=== PATIENT | male | born 1965 | race Caucasian/White ===

== ENCOUNTER 2017-07-29 17:51 | Emergency (ER) | payer OTHER ==
[~2017-07-29] VITALS: Ht 198.1 cm; Wt 111.6 kg
[2017-07-29 17:55] VITALS: Ht 198.1 cm; Wt 111.6 kg
[2017-07-29 19:39] VITALS: BP 149/99
== END 2017-07-29 19:39 | disposition home or self-care (01) ==
LOC: ED 17:51
DX: J20.9 Acute bronchitis, unspecified (principal); I10 Essential (primary) hypertension; K74.60 Unspecified cirrhosis of liver; Z88.2 Allergy status to sulfonamides
CPT/HCPCS: J7512; J7613; J7644

== ENCOUNTER 2018-05-31 13:38 | Emergency (ER) | payer OTHER ==
[~2018-05-31] VITALS: Ht 198.1 cm; Wt 104.3 kg
[2018-05-31 13:52] VITALS: Ht 198.1 cm; Wt 104.3 kg
[2018-05-31 15:01] LABS: BASOPHIL % 1.3 % (0-2)
[2018-05-31 15:03] LABS: PLATELET COUNT 105 x10^3mcL (130-400); RED CELL DISTRIBUTION WIDTH 16.5 % (11.5-14.5)
[2018-05-31 15:18] LABS: CALCIUM 8.4 mg/dL (8.5-10.1); CARBON DIOXIDE 26.3 mmol/L (21-32); CHLORIDE SERUM 103 mmol/L (98-107); CREATININE SERUM 0.9 mg/dL (0.7-1.3); GFR1 > 60 mL/min; GLUCOSE SERUM 96 mg/dL (74-106); POTASSIUM SERUM 4.4 mmol/L (3.5-5.1); SODIUM SERUM 136 mmol/L (136-145)
[2018-05-31 15:22] LABS: ALKALINE PHOSPHATASE 93 U/L (46-116); ALT/SGPT 146 U/L (16-63); AST/SGOT 124 U/L (15-37); BILIRUBIN TOTAL 1.3 mg/dL (0.20-1.00); LIPASE 171 IU/L (73-393); TOTAL PROTEIN, SERUM 7.2 g/dL (6.4-8.2)
[2018-05-31 15:29] LABS: ALBUMIN 3.1 g/dL (3.4-5.0)
[2018-05-31 20:20] VITALS: BP 146/82
== END 2018-05-31 20:20 | disposition home or self-care (01) ==
LOC: ED 13:38
PROVIDERS: Specialist
DX: K21.9 Gastro-esophageal reflux disease without esophagitis (principal); K74.60 Unspecified cirrhosis of liver; I10 Essential (primary) hypertension; Z88.2 Allergy status to sulfonamides; Z98.890 Other specified postprocedural states; Z90.89 Acquired absence of other organs; Z87.442 Personal history of urinary calculi
CPT/HCPCS: J2270; J2405; J3490; J7030; Q0092; Q9967

== ENCOUNTER 2018-06-08 16:53 | Emergency (ER) | payer OTHER ==
[~2018-06-08] VITALS: Ht 198.1 cm; Wt 99.8 kg
[2018-06-08 16:57] VITALS: Ht 198.1 cm; Wt 99.8 kg
[2018-06-08 17:42] LABS: BASOPHIL % 0.4 % (0-2)
[2018-06-08 17:44] LABS: CALCIUM 7.9 mg/dL (8.5-10.1); CARBON DIOXIDE 31.8 mmol/L (21-32); CHLORIDE SERUM 105 mmol/L (98-107); CREATININE SERUM 0.9 mg/dL (0.7-1.3); GFR1 > 60 mL/min; GLUCOSE SERUM 106 mg/dL (74-106); SODIUM SERUM 142 mmol/L (136-145)
[2018-06-08 17:48] LABS: ALKALINE PHOSPHATASE 87 U/L (46-116); ALT/SGPT 91 U/L (16-63); AMYLASE 70 U/L (25-115); AST/SGOT 67 U/L (15-37); BILIRUBIN TOTAL 1.2 mg/dL (0.20-1.00); LIPASE 366 IU/L (73-393); PLATELET COUNT 102 x10^3mcL (130-400); RED CELL DISTRIBUTION WIDTH 16.6 % (11.5-14.5); TOTAL PROTEIN, SERUM 6.3 g/dL (6.4-8.2)
[2018-06-08 17:50] LABS: ALBUMIN 2.8 g/dL (3.4-5.0)
[2018-06-08 20:03] VITALS: BP 134/88
== END 2018-06-08 20:03 | disposition home or self-care (01) ==
LOC: ED 16:53
PROVIDERS: Specialist
DX: R10.13 Epigastric pain (principal); I10 Essential (primary) hypertension; Z88.2 Allergy status to sulfonamides; Z90.89 Acquired absence of other organs; Z87.19 Personal history of other diseases of the digestive system
CPT/HCPCS: J2405; J3490

== ENCOUNTER 2018-06-21 13:14 | Emergency (ER) | payer OTHER ==
[~2018-06-21] VITALS: Ht 198.1 cm; Wt 105.2 kg
[2018-06-21 13:49] VITALS: Ht 198.1 cm; Wt 105.2 kg
[2018-06-21 17:23] VITALS: BP 149/82
== END 2018-06-21 17:38 | disposition home or self-care (01) ==
LOC: ED 13:14
DX: S09.8XXA Other specified injuries of head, initial encounter (principal); I10 Essential (primary) hypertension; Z88.2 Allergy status to sulfonamides; Z86.73 Personal history of transient ischemic attack (TIA), and cerebral infarction without residual deficits; X58.XXXA Exposure to other specified factors, initial encounter; Y93.89 Activity, other specified; Y92.89 Other specified places as the place of occurrence of the external cause; Y99.8 Other external cause status
CPT/HCPCS: J1885

== ENCOUNTER 2018-10-05 10:36 | Emergency (ER) | payer OTHER ==
[~2018-10-05] VITALS: Ht 195.6 cm; Wt 108.0 kg
[2018-10-05 10:54] VITALS: Ht 195.6 cm; Wt 108.0 kg
[2018-10-05 12:39] VITALS: BP 149/86
== END 2018-10-05 12:39 | disposition home or self-care (01) ==
LOC: ED 10:36
DX: S06.890A Other specified intracranial injury without loss of consciousness, initial encounter (principal); G44.209 Tension-type headache, unspecified, not intractable; I10 Essential (primary) hypertension; Z88.2 Allergy status to sulfonamides; Z98.890 Other specified postprocedural states; X58.XXXA Exposure to other specified factors, initial encounter; Y93.89 Activity, other specified; Y92.89 Other specified places as the place of occurrence of the external cause; Y99.8 Other external cause status
CPT/HCPCS: J0780; J1885

== ENCOUNTER 2018-11-22 20:52 | Emergency (ER) | payer OTHER ==
[~2018-11-22] VITALS: Ht 182.9 cm; Wt 104.3 kg
[2018-11-22 20:56] VITALS: Ht 182.9 cm; Wt 104.3 kg
[2018-11-23 00:42] VITALS: BP 138/83
== END 2018-11-23 00:42 | disposition home or self-care (01) ==
LOC: ED 20:52
DX: G43.009 Migraine without aura, not intractable, without status migrainosus (principal); I10 Essential (primary) hypertension; Z88.2 Allergy status to sulfonamides; Z98.890 Other specified postprocedural states; Z86.73 Personal history of transient ischemic attack (TIA), and cerebral infarction without residual deficits
CPT/HCPCS: J0780; J1100; J1630; Q0163

== ENCOUNTER 2018-11-29 15:45 | Emergency (ER) | payer OTHER ==
[~2018-11-29] VITALS: Ht 193 cm; Wt 113.4 kg
[2018-11-29 15:52] VITALS: Ht 193 cm; Wt 113.4 kg
[2018-11-29 19:03] VITALS: BP 159/77
== END 2018-11-29 19:03 | disposition home or self-care (01) ==
LOC: ED 15:45
DX: S06.9X9A Unspecified intracranial injury with loss of consciousness of unspecified duration, initial encounter (principal); F07.81 Postconcussional syndrome; I25.2 Old myocardial infarction; K74.60 Unspecified cirrhosis of liver; I13.0 Hypertensive heart and chronic kidney disease with heart failure and stage 1 through stage 4 chronic kidney disease, or unspecified chronic kidney disease; N18.9 Chronic kidney disease, unspecified; Z86.19 Personal history of other infectious and parasitic diseases; Z88.2 Allergy status to sulfonamides; Y08.89XA Assault by other specified means, initial encounter; Y93.89 Activity, other specified; Y92.89 Other specified places as the place of occurrence of the external cause; Y99.8 Other external cause status
CPT/HCPCS: Q0162

== ENCOUNTER 2019-08-01 22:48 | Emergency (ER) | payer OTHER ==
[~2019-08-01] VITALS: Ht 198.1 cm; Wt 111.1 kg
[2019-08-01 23:07] VITALS: Ht 198.1 cm; Wt 111.1 kg
[2019-08-02 00:15] LABS: CALCIUM 8.3 mg/dL (8.5-10.1); CARBON DIOXIDE 24.8 mmol/L (21-32); CHLORIDE SERUM 108 mmol/L (98-107); CREATININE SERUM 0.8 mg/dL (0.7-1.3); GFR1 > 60 mL/min; GLUCOSE SERUM 116 mg/dL (74-106); SODIUM SERUM 144 mmol/L (136-145)
[2019-08-02 00:19] LABS: ALKALINE PHOSPHATASE 110 U/L (46-116); ALT/SGPT 138 U/L (16-63); AST/SGOT 121 U/L (15-37); BILIRUBIN TOTAL 0.6 mg/dL (0.20-1.00); TOTAL PROTEIN, SERUM 6.7 g/dL (6.4-8.2)
[2019-08-02 00:20] LABS: ALBUMIN 2.7 g/dL (3.4-5.0)
[2019-08-02 00:21] LABS: BASOPHIL % 0.9 % (0-2); PLATELET COUNT 98 x10^3mcL (130-400); RED CELL DISTRIBUTION WIDTH 17.4 % (11.5-14.5)
[2019-08-02 01:11] VITALS: BP 154/93
== END 2019-08-02 01:11 | disposition home or self-care (01) ==
LOC: ED 22:48
PROVIDERS: Emergency Medicine
DX: I13.0 Hypertensive heart and chronic kidney disease with heart failure and stage 1 through stage 4 chronic kidney disease, or unspecified chronic kidney disease (principal); N18.9 Chronic kidney disease, unspecified; I50.9 Heart failure, unspecified; Z98.890 Other specified postprocedural states; Z88.2 Allergy status to sulfonamides
CPT/HCPCS: 36415; 83880; J1940

== ENCOUNTER 2019-09-24 22:04 | Emergency (ER) | payer OTHER ==
[~2019-09-24] VITALS: Ht 198.1 cm; Wt 93.4 kg
[2019-09-24 22:12] VITALS: Ht 198.1 cm; Wt 93.4 kg
[2019-09-24 23:10] LABS: BASOPHIL % 0.9 % (0-2); PLATELET COUNT 193 x10^3mcL (130-400); RED CELL DISTRIBUTION WIDTH 17.6 % (11.5-14.5)
[2019-09-24 23:18] LABS: CALCIUM 9.2 mg/dL (8.5-10.1); CARBON DIOXIDE 27.7 mmol/L (21-32); CHLORIDE SERUM 106 mmol/L (98-107); CREATININE SERUM 0.9 mg/dL (0.7-1.3); GFR1 > 60 mL/min; GLUCOSE SERUM 101 mg/dL (74-106); POTASSIUM SERUM 4.1 mmol/L (3.5-5.1); SODIUM SERUM 140 mmol/L (136-145)
[2019-09-24 23:28] LABS: ALKALINE PHOSPHATASE 116 U/L (46-116); ALT/SGPT 76 U/L (16-63); AST/SGOT 116 U/L (15-37); BILIRUBIN TOTAL 1.1 mg/dL (0.20-1.00); LIPASE 442 IU/L (73-393); TOTAL PROTEIN, SERUM 7.7 g/dL (6.4-8.2)
[2019-09-24 23:30] LABS: ALBUMIN 2.6 g/dL (3.4-5.0); AMYLASE 144 U/L (25-115)
[2019-09-25 02:14] VITALS: BP 123/73
== END 2019-09-25 02:14 | disposition home or self-care (01) ==
LOC: ED 22:04
PROVIDERS: Emergency Medicine
DX: K85.90 Acute pancreatitis without necrosis or infection, unspecified (principal); I50.9 Heart failure, unspecified; I11.0 Hypertensive heart disease with heart failure; I25.2 Old myocardial infarction; Z98.890 Other specified postprocedural states; Z88.2 Allergy status to sulfonamides
CPT/HCPCS: J2270; J7030

== ENCOUNTER 2019-09-25 20:09 | Emergency (ER) | payer OTHER ==
[~2019-09-25] VITALS: Ht 198.1 cm; Wt 96.6 kg
[2019-09-25 20:17] VITALS: Ht 198.1 cm; Wt 96.6 kg
[2019-09-25 20:55] LABS: CALCIUM 8.3 mg/dL (8.5-10.1); CARBON DIOXIDE 27.5 mmol/L (21-32); CHLORIDE SERUM 104 mmol/L (98-107); CREATININE SERUM 0.9 mg/dL (0.7-1.3); GFR1 > 60 mL/min; GLUCOSE SERUM 93 mg/dL (74-106); POTASSIUM SERUM 3.7 mmol/L (3.5-5.1); SODIUM SERUM 138 mmol/L (136-145)
[2019-09-25 20:57] LABS: BASOPHIL % 0.7 % (0-2); PLATELET COUNT 154 x10^3mcL (130-400); RED CELL DISTRIBUTION WIDTH 17.4 % (11.5-14.5)
[2019-09-25 20:59] LABS: ALKALINE PHOSPHATASE 124 U/L (46-116); ALT/SGPT 93 U/L (16-63); AST/SGOT 148 U/L (15-37); LIPASE 366 IU/L (73-393); TOTAL PROTEIN, SERUM 7.4 g/dL (6.4-8.2)
[2019-09-25 21:00] LABS: ALBUMIN 2.6 g/dL (3.4-5.0)
[2019-09-25 21:21] VITALS: BP 119/75
== END 2019-09-25 21:21 | disposition home or self-care (01) ==
LOC: ED 20:09
PROVIDERS: Emergency Medicine
DX: K85.90 Acute pancreatitis without necrosis or infection, unspecified (principal); R10.10 Upper abdominal pain, unspecified; I50.9 Heart failure, unspecified; I11.0 Hypertensive heart disease with heart failure; I25.2 Old myocardial infarction; K74.60 Unspecified cirrhosis of liver; Z98.890 Other specified postprocedural states; Z88.2 Allergy status to sulfonamides
CPT/HCPCS: 36415; J7030

== ENCOUNTER 2019-09-29 17:34 | Emergency (ER) | payer OTHER ==
[~2019-09-29] VITALS: Ht 198.1 cm; Wt 97.1 kg
[2019-09-29 17:39] VITALS: Ht 198.1 cm; Wt 97.1 kg
[2019-09-29 18:17] LABS: BASOPHIL % 0.3 % (0-2); CALCIUM 7.9 mg/dL (8.5-10.1); CARBON DIOXIDE 26.1 mmol/L (21-32); CHLORIDE SERUM 108 mmol/L (98-107); CREATININE SERUM 0.8 mg/dL (0.7-1.3); GFR1 > 60 mL/min; GLUCOSE SERUM 78 mg/dL (74-106); POTASSIUM SERUM 3.8 mmol/L (3.5-5.1); SODIUM SERUM 142 mmol/L (136-145)
[2019-09-29 18:22] LABS: ALKALINE PHOSPHATASE 140 U/L (46-116); ALT/SGPT 100 U/L (16-63); AST/SGOT 140 U/L (15-37); BILIRUBIN TOTAL 0.8 mg/dL (0.20-1.00); LIPASE 326 IU/L (73-393); TOTAL PROTEIN, SERUM 7.8 g/dL (6.4-8.2)
[2019-09-29 18:27] LABS: ALBUMIN 2.8 g/dL (3.4-5.0)
[2019-09-29 18:29] LABS: PLATELET COUNT 129 x10^3mcL (130-400)
[2019-09-29 19:16] VITALS: BP 131/77
== END 2019-09-29 19:17 | disposition home or self-care (01) ==
LOC: ED 17:34
PROVIDERS: Emergency Medicine
DX: K59.00 Constipation, unspecified (principal); I13.0 Hypertensive heart and chronic kidney disease with heart failure and stage 1 through stage 4 chronic kidney disease, or unspecified chronic kidney disease; N18.9 Chronic kidney disease, unspecified; I50.9 Heart failure, unspecified
CPT/HCPCS: 36415; Q0092; Q0162

== ENCOUNTER 2019-10-25 12:38 | Emergency (ER) | payer OTHER ==
[~2019-10-25] VITALS: Ht 198.1 cm; Wt 81.6 kg
[2019-10-25 12:40] VITALS: Ht 198.1 cm; Wt 81.6 kg
== END 2019-10-25 14:16 | disposition left against medical advice (07) ==
LOC: ED 12:38
DX: I83.892 Varicose veins of left lower extremity with other complications (principal); I13.0 Hypertensive heart and chronic kidney disease with heart failure and stage 1 through stage 4 chronic kidney disease, or unspecified chronic kidney disease; N18.9 Chronic kidney disease, unspecified; I50.9 Heart failure, unspecified; Z88.2 Allergy status to sulfonamides
CPT/HCPCS: 90715; J2001